=== PATIENT | male | born 1990 | race Caucasian/White ===

== ENCOUNTER 2017-12-07 02:55 | Emergency (ER) | payer BC, OTHER ==
[2017-12-07] MEDS: IBUPROFEN 600 MG TAB PO (04:12)
[2017-12-07] MEDS: ACETAMINOPHEN 325 MG TAB PO (04:12)
== END 2017-12-07 06:35 | disposition home or self-care (01) ==
LOC: FTE 06:35
DX: K21.9 Gastro-esophageal reflux disease without esophagitis (principal)
CPT/HCPCS: 71045; 93005; 99284-25